=== PATIENT | female | born 1980 | race Caucasian/White ===

== ENCOUNTER 2019-10-26 09:19 | Outpatient (CLI) | payer OTHER, SELFPAY ==
[2019-10-26 11:49] LABS: Alanine Aminotransferase 52 U/L (14-59); Alkaline Phosphatase 67 U/L (46-116); Anion Gap 14.9 mmol/L (7-16); Aspartate Amino Transferase 24 U/L (15-37); Bilirubin,Total 0.9 mg/dL (0.00-1.00); Blood Urea Nitrogen 18 mg/dL (7-18); Calcium 8.8 mg/dL (8.5-10.1); Carbon Dioxide 25 mmol/L (21-32); Chloride 105 mmol/L (98-108); Cholesterol 215 mg/dL (0-200); Estimated Glomerular Filt Rate > 60; Glucose 108 mg/dL (70-99); HDL Direct 41 mg/dL (40-60); LDL Cholesterol Calculated 151 mg/dL (<130); Osmolality Calculated 292 mOsm/kg (285-295); Potassium 4.9 mmol/L (3.5-5.1); Sodium 140 mmol/L (136-145); Total Protein 7.8 g/dL (6.4-8.2); Triglycerides 113 mg/dL (0-150)
== END 2019-10-26 09:20 | disposition home or self-care (01) ==
PROVIDERS: PCP Family Medicine
DX: E78.5 Hyperlipidemia, unspecified (principal)
CPT/HCPCS: 36415; 80053; 80061

== ENCOUNTER 2020-05-23 06:34 | Outpatient (CLI) | payer OTHER, SELFPAY ==
--- NOTE | ~2020-05-23 | MM_ITS ---
EXAMINATION: MM screening leandro BI w thu HISTORY: Screening TECHNIQUE: Craniocaudal and mediolateral oblique 3-D tomosynthesis images were obtained and synthetic 2-D images were generated. CAD analysis was submitted and interpreted. COMPARISON: 05/17/2019 BREAST PARENCHYMAL COMPOSITION: There are scattered areas of fibroglandular density. FINDINGS: There is no evidence of suspicious mass, calcification, or architectural distortion to sugg est malignancy in either breast. There has been no suspicious interval change. IMPRESSION: 1. No mammographic evidence of malignancy. 2. Recommend routine screening mammography in one year. BI-RADS Category 1: Negative Reviewed, dictated and finalized at location A.
== END 2020-05-23 06:35 | disposition home or self-care (01) ==
PROVIDERS: PCP Family Medicine; Visit Provider Student in an Organized Health Care Education/Training Program
DX: Z12.31 Encounter for screening mammogram for malignant neoplasm of breast (principal)
CPT/HCPCS: 77063; 77067

== ENCOUNTER 2020-05-29 06:33 | Outpatient (CLI) | payer OTHER, SELFPAY ==
[2020-05-29 11:28] LABS: Cholesterol 197 mg/dL (0-200); Triglycerides 152 mg/dL (0-150)
[2020-05-29 11:29] LABS: HDL Direct 42 mg/dL (40-60); LDL Cholesterol Calculated 125 mg/dL (<130)
[2020-06-03 09:59] LABS: Vitamin D 25 Hydroxy 24 ng/mL (30-100)
== END 2020-05-29 06:34 | disposition home or self-care (01) ==
LOC: CHSLAB 06:38
PROVIDERS: PCP Nurse Practitioner; Visit Provider Nurse Practitioner
DX: R53.83 Other fatigue (principal); E78.2 Mixed hyperlipidemia
CPT/HCPCS: 36415; 80061; 82306

== ENCOUNTER 2020-10-08 08:26 | Outpatient (CLI) | payer OTHER, SELFPAY ==
[2020-10-11 18:55] LABS: HSV 1 IgM Screen Negative (Negative); HSV 2 IgM Screen Negative (Negative)
== END 2020-10-08 08:27 | disposition home or self-care (01) ==
PROVIDERS: PCP Family Medicine; Visit Provider Student in an Organized Health Care Education/Training Program
DX: Z20.2 Contact with and (suspected) exposure to infections with a predominantly sexual mode of transmission (principal)
CPT/HCPCS: 36415; 86695; 86696

== ENCOUNTER 2021-04-01 13:00 | Outpatient (CLI) | payer OTHER, SELFPAY ==
[2021-04-01 14:13] LABS: SARS-CoV-2 RNA PCR Negative (Negative)
== END 2021-04-01 13:01 | disposition home or self-care (01) ==
LOC: CHSLAB 13:03
PROVIDERS: PCP Family Medicine; Visit Provider Family Medicine
DX: Z20.822 Contact with and (suspected) exposure to COVID-19 (principal)
CPT/HCPCS: C9803; U0003; U0005

== ENCOUNTER 2021-04-09 20:52 | Inpatient (IN) | payer OTHER, SELFPAY ==
--- NOTE | ~2021-04-09 | US_ITS ---
EXAMINATION: US venous doppler [facility] EXAM DATE: 04/10/2021 12:26 INDICATION: edema and numbness LLE . TECHNIQUE: Multiple grayscale, color flow and Doppler images of the left lower extremity deep venous system were obtained and reviewed. There is no prior study for comparison. FINDINGS: The left common femoral, femoral and profunda veins demonstrate normal color flow, respirat ory variation, augmentation and compressibility. Compressibility, color flow confirmed within the le ft popliteal, posterior tibial, peroneal, and greater saphenous veins. IMPRESSION: 1. No left lower extremity deep venous thrombosis. Reviewed, dictated and finalized at location B.
--- NOTE | ~2021-04-09 | XR_ITS ---
EXAMINATION: XR chest 1V portable DATE: 04/09/2021 21:37 INDICATION: Shortness of breath and cough. COVID-19 pneumonia. TECHNIQUE: A single frontal view of the chest was obtained. COMPARISON: Chest 2 views 12/27/2018 FINDINGS: There are patchy airspace opacities in the mid and lower lung zones. No pleural effusion or pneumothorax. The heart size is normal. IMPRESSION: 1. Patchy airspace opacities in the mid and lower lung zones, consistent with COVID-19 pneumonia. Reviewed, dictated and finalized at location A. IMPRESSION: 1. Patchy airspace opacities in the mid and lower lung zones, consistent with C OVID-19 pneumonia.
[2021-04-09 21:17] VITALS: BP 133/96; PULSE 125; RESP 40; TEMP 38.1; O2SAT 100
[2021-04-09 21:21] VITALS: PULSE 133; RESP 32; O2SAT 97
[2021-04-09 21:23] VITALS: PULSE 120; RESP 32; O2SAT 100
[2021-04-09] MEDS: ALBUTEROL SULFATE (*SP) INHALER 2 PUFF INHALATION (21:24)
[2021-04-09 21:44] LABS: Base Excess ABG -6.1 mmol/L (0-2); Basophils Absolute Auto 0.01 K/mm3 (0.00-0.10); Basophils Percent Auto 0.2 % (0.0-1.0); Hematocrit 41.8 % (35.0-49.0); Hemoglobin 13.9 g/dL (12.0-15.0); Immature Granulocyte Absolute 0.03 K/mm3 (0.00-0.00); Immature Granulocyte Percent A 0.5 % (0.0-0.0); Lymphocytes Absolute Auto 0.94 K/mm3 (1.10-4.50); Lymphocytes Percent Auto 16.6 % (18.0-42.0); Mean Corpuscular HGB Conc 33.3 g/dL (32.0-36.0); Mean Corpuscular Hemoglobin 28.4 pg (27.0-31.0); Mean Corpuscular Volume 85.3 fL (78.0-102.0); Mean Platelet Volume 9.3 fl (9.2-11.8); Monocytes Absolute Auto 0.28 K/mm3 (0.10-0.90); Monocytes Percent Auto 4.9 % (2.0-11.0); Neutrophils Absolute Auto 4.4 K/mm3 (1.7-7.2); Neutrophils Percent Auto 77.8 % (50.0-70.0); Oxygen Content ABG 19.1 %vol (16.0-22.0); Oxygen Saturation ABG 93.7 % (95-97); PCO2 ABG 20.9 mmHg (35-45); PO2 ABG 68.1 mmHg (80-90); Platelet Count Result 177 K/mm3 (150-420); Red Cell Distribution Width 11.9 % (11.6-14.4); Total Hemoglobin 14.6 g/dL (12.0-18.0); White Blood Count 5.7 K/mm3 (4.8-10.8); pH ABG 7.48 (7.35-7.45)
[2021-04-09 21:45] LABS: Modified Allen's Test Pass; Site Drawn LEFT RADIAL
[2021-04-09 21:46] LABS: Device ROOM AIR
[2021-04-09 22:00] LABS: Alanine Aminotransferase 53 U/L (14-59); Albumin Level 3.4 g/dL (3.4-5.0); Alkaline Phosphatase 68 U/L (46-116); Anion Gap 13 mmol/L (8-16); Aspartate Amino Transferase 32 U/L (15-37); Bilirubin,Total 0.7 mg/dL (0.00-1.00); Blood Urea Nitrogen 15 mg/dL (7-18); Calcium 8.3 mg/dL (8.5-10.1); Carbon Dioxide 22 mmol/L (21-32); Chloride 101 mmol/L (98-108); Estimated CRCL calculation 88 ml/min; Estimated Glomerular Filt Rate 59; Glucose 304 mg/dL (70-99); Osmolality Calculated 293 mOsm/kg (285-295); Potassium 4.1 mmol/L (3.5-5.1); Sodium 136 mmol/L (136-145); Total Protein 7.7 g/dL (6.4-8.2)
--- NOTE | 2021-04-09 22:03 | ED.SOB ---
HPI - SOB/Dyspnea General Chief Complaint: Shortness of Breath/Dyspnea Stated Complaint: trouble breathing,COVID + Source: patient Mode of arrival: ambulatory Limitations: no limitations History of Present Illness HPI Narrative: this is a 41-year-old female with history of diabetes and depression COVID positive presents with increasing shortness of breath nonproductive cough with no fever chills O2 sats are stable with no nausea vomiting no abdominal pain no chest pain no diarrhea constipation. MD elicited complaint: shortness of breath and cough Onset (ago): day(s) Context: recent illness Timing: constant Severity: moderate Exacerbating factors: coughing and inspiration Relieving factors: bronchodilators Related Data Home Medications Medication Instructions Recorded Confirmed citalopram 20 mg tablet 20 mg PO DAILY 02/06/20 04/09/21 metformin 500 mg tablet 500 mg PO DAILY 09/10/20 04/09/21 Allergies Allergy/AdvReac Type Severity Reaction Status Date / Time No Known Allergies Allergy Verified 04/09/21 21:29 Review of Systems Review of Systems: All systems reviewed & are unremarkable except as noted in HPI and below PMFSH Past Medical History Medical History Ectopic x 3 Type II diabetes mellitus Surgical History Surgical History History of bilateral tubal ligation History of cholecystectomy History of endometrial ablation Previous section x 3 Family History Family History Father Hypertension Grandparent Hypertension Cerebrovascular accident Carcinoma of colon Family history of malignant neoplasm of ovary Other Diabetes mellitus Social History Social History Smoking status: Former smoker Alcohol intake: current Exam Const: General: no acute distress Orientation/consciousness: patient oriented x3 HENMT: Head: normal to inspection Eyes: Conjunctivae: conjunctivae normal Pupils: Equal, round and reactive pupils present EOM: EOMs intact bilaterally Direct Ophthalmoscopy: no photophobia Neck: Neck: normal visual inspection, no lymphadenopathy and no meningeal signs Chest: Chest palpation & inspection: normal inspection of the chest Resp: Effort & Inspection: normal respiratory effort Auscultation: clear to auscultation bilaterally Cardio: Rate: regular rate Rhythm: regular rhythm GI: GI Palp: Yes Soft to palpation Percussion: Yes normal to percussion : General: Yes no CVA tenderness Neuro: General: patient oriented x3 Extrem: General: normal to inspection and no pedal edema Psych: Mental Status: mental status grossly normal Affect: normal affect Course Course Emergency Course: Reassessment of patient breathing a little easier continues to have a cough reviewed ABGs and chest x-ray and will admit the patient. Vital Signs Vital signs: Vital Signs Temperature 38.1 C H 04/09/21 21:17 Pulse Rate 125 H 04/09/21 21:17 Respiratory Rate 40 H 04/09/21 21:17 Blood Pressure 133/96 H 04/09/21 21:17 Pulse Oximetry 100 04/09/21 21:17 Temperature 38.1 C H 04/09/21 21:17 Pulse Rate 120 H 04/09/21 21:23 Respiratory Rate 32 H 04/09/21 21:23 Blood Pressure 133/96 H 04/09/21 21:17 Pulse Oximetry 100 04/09/21 21:23 MDM - SOB/Dyspnea Lab Data Result diagrams: 04/09/21 21:11 04/09/21 21:11 Labs: Lab Results 04/09/21 04/09/21 Range/Units 21:11 21:11 WBC 5.7 (4.8-10.8) K/mm3 RBC 4.90 (4.20-5.40) M/mm3 Hgb 13.9 (12.0-15.0) g/dL Hct 41.8 (35.0-49.0) % MCV 85.3 (78.0-102.0) fL MCH 28.4 (27.0-31.0) pg MCHC 33.3 (32.0-36.0) g/dL RDW 11.9 (11.6-14.4) % Plt Count 177 (150-420) K/mm3 MPV 9.3 (9.2-11.8) fl Immature Gran % (Auto) 0.5
[2021-04-09 22:20] VITALS: O2SAT 98
[2021-04-09 22:25] VITALS: BP 119/73; PULSE 102; RESP 32; O2SAT 98
--- NOTE | 2021-04-09 22:40 | ADMGEN ---
This patient, Arlene Jiang, was admitted to 2nd Floor Room 212-1. Patient was oriented to hospital policies and general routines including ID bracelet, bed and alarms, visiting hours, pain management, procedures, bathroom and other care routines, personal items, smoking policy, and room service/diet. Information on how to activate the Rapid Response Team has been discussed. Patient is encouraged to report perceived risks to care and to ask questions if she does not understand what she is told or what she should do.
[2021-04-09 23:30] VITALS: O2SAT 99
[2021-04-09] MEDS: SODIUM CHLORIDE 0.9% IV 1,000 ML 100 ML IV CONT (23:40)
[2021-04-09] MEDS: DEXAMETHASONE SOD PHOS INJ 4 MG/ML VIAL 6 MG IV PUSH (23:40)
[2021-04-09] MEDS: REMDESIVIR 200 MG/NS 250 ML 200 MG/250 ML BAG 250 MG IVPB (23:50)
[2021-04-09] MEDS: ACETAMINOPHEN 325 MG TABLET 650 MG PO (23:51)
[2021-04-10] VITALS (11 sets, daily range): BP systolic 106–134; BP diastolic 53–68; PULSE 78–99; RESP 18–32; TEMP 36.2–37.3; O2SAT 93–99
--- NOTE | 2021-04-10 02:15 | PC.NURSE ---
Completed patient rounding. Patient is sleeping comfortably in bed, without any signs of pain or discomfort.
[2021-04-10 05:32] LABS: Hemoglobin 12.8 g/dL (12.0-15.0); Mean Corpuscular HGB Conc 32.8 g/dL (32.0-36.0); Mean Corpuscular Hemoglobin 28.3 pg (27.0-31.0); Mean Corpuscular Volume 86.1 fL (78.0-102.0); Mean Platelet Volume 9.1 fl (9.2-11.8); Platelet Count Result 161 K/mm3 (150-420); Red Blood Count 4.53 M/mm3 (4.20-5.40); Red Cell Distribution Width 11.9 % (11.6-14.4); White Blood Count 4.6 K/mm3 (4.8-10.8)
[2021-04-10 05:46] LABS: Alanine Aminotransferase 37 U/L (14-59); Albumin Level 2.9 g/dL (3.4-5.0); Alkaline Phosphatase 58 U/L (46-116); Anion Gap 11 mmol/L (8-16); Aspartate Amino Transferase 29 U/L (15-37); Bilirubin,Total 0.8 mg/dL (0.00-1.00); Blood Urea Nitrogen 15 mg/dL (7-18); Calcium 7.6 mg/dL (8.5-10.1); Carbon Dioxide 23 mmol/L (21-32); Chloride 101 mmol/L (98-108); Estimated CRCL calculation 103 ml/min; Estimated Glomerular Filt Rate > 60; Glucose 348 mg/dL (70-99); Osmolality Calculated 294 mOsm/kg (285-295); Potassium 4.3 mmol/L (3.5-5.1); Sodium 135 mmol/L (136-145); Total Protein 6.8 g/dL (6.4-8.2)
[2021-04-10 06:04] LABS: Band Neutrophils Percent 0 % (0-6); Basophils Percent Manual 0 % (0-1); Eosinophils Percent Manual 0 % (1-6); Lymphocytes Absolute Manual 0.69 K/mm3 (1.1-4.5); Lymphocytes Percent Manual 15 % (18-44); Monocytes Absolute Manual 0.41 K/mm3 (0.1-0.90); Monocytes Percent Manual 9 % (3-9); Neutrophils Absolute Manual 3.49 K/mm3 (1.7-7.2); Neutrophils Percent Manual 76 % (46-73); Platelet Estimate Adequate (Adequate)
[2021-04-10] MEDS: metFORMIN HCL 500 MG TABLET PO (08:30)
[2021-04-10] MEDS: ENOXAPARIN 40 MG/0.4 ML SYRINGE SUB-Q (08:30)
[2021-04-10] MEDS: DEXAMETHASONE SOD PHOS INJ 4 MG/ML VIAL 6 MG IV PUSH (08:30)
[2021-04-10 10:07] LABS: Base Excess ABG -3.8 mmol/L (0-2); HCO3 ABG 19.7 mmol/L (23-29); Oxygen Content ABG 16.7 %vol (16.0-22.0); Oxyhemoglobin 94.5 % (94-100); PCO2 ABG 31.2 mmHg (35-45); PO2 ABG 77.1 mmHg (80-90); Total Hemoglobin 12.5 g/dL (12.0-18.0); pH ABG 7.42 (7.35-7.45)
[2021-04-10 10:10] LABS: Device NASAL CANNULA; Modified Allen's Test Pass; Site Drawn LEFT RADIAL
--- NOTE | 2021-04-10 11:27 | PM.IMHP ---
H&P: HPI History of Present Illness Date/Time: 04/10/21 11:27 Arlene Jiang is a 41 year old female who comes to the hospital with SOB and cough after testing positive for COVID on 04/04/21. Pt states she believes she got COVID from her kids who were exposed at school. Pt states she was breathing heavily. Denies fever and chills. She had a temp of 100.5`F in the ER. This morning Pt states her breathing is improved a bit. She is concerned that her left foot feels swollen with numbness. Pt was hypoxic in the ER upon arrival with an ABG showing: pH 7.48, pCO2 20.9, pO2 68.1, HCO3 15 this morning ABG improved: pH 7.42, pCO2 31.2, pO2 77.1, HCO3 19.7. Pt required supplemental O2 at 2L/min via NC. PMHx includes: Depression and T2DM Chief Complaint: Shortness of Breath Review of Systems Constitutional: Constitutional: Reports no additional constitutional complaints, Denies body ache(s), Denies chills, Denies fever(s) and Denies headache(s) Cardiovascular: Cardiovascular: Reports no additional cardiovascular complaints, Denies chest pain and Denies chest pain at rest Respiratory: Respiratory: Reports no additional respiratory complaints, Reports dyspnea and Reports dyspnea on exertion Comments: admits she was hyperventilating upon arrival to the ER. This is resolved this AM. Gastrointestinal: Gastrointestinal: Reports no additional gastrointestinal complaints and Denies abdominal pain Musculoskeletal: Musculoskeletal: Reports no additional musculoskeletal complaints Neurologic: Reports system reviewed and no additional complaints, except as documented Psychiatric: Psychiatric: Reports no additional psychiatric complaints PMFSH Past Medical History Medical History (Updated 04/10/21 @ 12:09 by Dario Jackson APN-Maximo) Abnormal uterine bleeding Body mass index [BMI] 45.0-49.9, adult (04/26/19) Depression Ectopic x 3 Encounter for gynecological examination (general) (routine) without abnormal findings Personal history of nicotine dependence Postoperative visit Preoperative exam for gynecologic surgery Screening mammogram, encounter for STD exposure Type II diabetes mellitus UTI symptoms Surgical History Surgical History History of bilateral tubal ligation History of cholecystectomy History of endometrial ablation Previous section x 3 Family History Family History Father Hypertension Grandparent Hypertension Cerebrovascular accident Carcinoma of colon Family history of malignant neoplasm of ovary Other Diabetes mellitus Social History Social History Smoking status: Never smoker Alcohol intake: never Substance use: never Substance use type: does not use Spiritual care concerns: No Meds Home Medications and Allergies Home Medications Medication Instructions Recorded Confirmed Type citalopram 20 mg tablet 20 mg PO DAILY 02/06/20 04/09/21 History metformin 500 mg tablet 500 mg PO DAILY 09/10/20 04/09/21 History Allergies Allergy/AdvReac Type Severity Reaction Status Date / Time No Known Allergies Allergy Verified 04/09/21 21:29 Vital Signs Vital Signs - 24 hr 04/09/21 21:17 04/09/21 21:21 04/09/21 21:23 Temperature 100.5 F H Pulse Rate 125 H 133 H 120 H Respiratory Rate 40 H 32 H 32 H Blood Pressure 133/96 H Pulse Oximetry 100 97 100 04/09/21 22:20 04/09/21 22:25 04/09/21 23:30 Temperature Pulse Rate 102 H Respiratory Rate 32 H Blood Pressure 119/73 Pulse Oximetry 98 98 99 04/10/21 00:00 04/10/21 04:00 04/10/21 07:55 Temperature 99.2 F 97.6 F 97.2 F L Pulse Rate 99 86 82 Respiratory Rate 32 H 32 H 20 Blood Pressure 106/60 124/67 116/53 L Pulse Oximetry 99 95 98 04/10/21 08:00 Temperature Pulse Rate 80 Respiratory Rate 20 Blood Pressure Pulse Oximetry 98 E
[2021-04-10] MEDS: guaiFENesin/DEXTROMETHORPHAN 5 ML UDC 10 ML PO ×2 (12:15→18:00)
[2021-04-10 12:27] LABS: Glucose Point of Care 295 mg/dl (65-105)
[2021-04-10 17:24] LABS: Glucose Point of Care 323 mg/dl (65-105)
[2021-04-10] MEDS: ACETAMINOPHEN 325 MG TABLET 650 MG PO (17:56)
[2021-04-10] MEDS: REMDESIVIR 100 MG/NS 250 ML 100 MG/250 ML BAG 250 MG IVPB (21:18)
[2021-04-10 21:34] LABS: Glucose Point of Care 311 mg/dl (65-105)
[2021-04-11] VITALS (7 sets, daily range): BP systolic 112–139; BP diastolic 64–79; PULSE 61–98; RESP 15–20; TEMP 36.1–37.1; O2SAT 94–98
[2021-04-11] MEDS: guaiFENesin/DEXTROMETHORPHAN 5 ML UDC 10 ML PO ×4 (00:01→23:20)
[2021-04-11 05:26] LABS: Hematocrit 35.7 % (35.0-49.0); Mean Corpuscular HGB Conc 33.6 g/dL (32.0-36.0); Mean Corpuscular Hemoglobin 28.7 pg (27.0-31.0); Mean Corpuscular Volume 85.4 fL (78.0-102.0); Mean Platelet Volume 9.2 fl (9.2-11.8); Platelet Count Result 172 K/mm3 (150-420); Red Blood Count 4.18 M/mm3 (4.20-5.40); White Blood Count 4.7 K/mm3 (4.8-10.8)
[2021-04-11 05:41] LABS: Alanine Aminotransferase 35 U/L (14-59); Albumin Level 2.8 g/dL (3.4-5.0); Alkaline Phosphatase 54 U/L (46-116); Anion Gap 9 mmol/L (8-16); Aspartate Amino Transferase 23 U/L (15-37); Bilirubin,Total 0.5 mg/dL (0.00-1.00); Blood Urea Nitrogen 13 mg/dL (7-18); Carbon Dioxide 26 mmol/L (21-32); Chloride 105 mmol/L (98-108); Estimated CRCL calculation 110 ml/min; Estimated Glomerular Filt Rate > 60; Glucose 262 mg/dL (70-99); INR 1.1; Osmolality Calculated 299 mOsm/kg (285-295); Potassium 3.8 mmol/L (3.5-5.1); Prothrombin Time 11.2 Seconds (9.50-12.10); Sodium 140 mmol/L (136-145); Total Protein 6.7 g/dL (6.4-8.2)
--- NOTE | 2021-04-11 08:27 | PM.IMPN ---
Progress Note: A&P Assessment and Plan (1) Pneumonia due to 2019 novel coronavirus: Code(s): U07.1 - COVID-19; J12.82 - Pneumonia due to coronavirus disease 2019 Status: Acute Assessment and Plan: Positive for COVID on 04/04/21, increased oxygen demand requiring supplemental O2 via NC at 2L/min for an SpO2 >94%, Remdesivir, Decadron, Lovenox, will monitor ALT 37, Cr 0.86, eGFR >60, and PT/INR 11/1. ABG improved, Robitussin, Albuterol 04/11/2021 supplemental O2 down to 1L/min with SpO2 95% or better, Pt states breathing is better this AM, Cr 0.8, eGFR >60, ALT 35, PT/INR 11.2/1.1 (2) Type II diabetes mellitus: Code(s): E11.9 - Type 2 diabetes mellitus without complications Status: Acute Assessment and Plan: Continue Metformin and added SSI with hypoglycemia protocol in place. 04/11/2021 Glucose elevated due to Decadron, continue to monitor and use SSI (3) Depression: Code(s): F32.9 - Major depressive disorder, single episode, unspecified Status: Acute Assessment and Plan: Continue Citalopram (4) Swelling of right foot: Code(s): M79.89 - Other specified soft tissue disorders Status: Acute Assessment and Plan: Ordered LE Venous US. 04/11/2021 Negative for DVT Subjective Date/time seen: 04/11/21 08:27 Arlene Jiang states her breathing has improved this AM. Yesterday evening she did not use her supplemental oxygen and it was reported that she did well without it. Currently she is at 1L/min with SpO2 of 96%. Pt would like to know when she can return home. I informer her she had 2 more days of Remdesivir however if she can be weaned off of supplemental O2 she could go home earlier. Pt has no other concerns other than to continue her Citalopram and she wanted water. Review of Systems Constitutional: Constitutional: Reports no additional constitutional complaints, Denies body ache(s), Denies chills and Denies fever(s) Cardiovascular: Cardiovascular: Reports no additional cardiovascular complaints, Denies chest pain and Denies chest pain at rest Respiratory: Respiratory: Reports no additional respiratory complaints and Reports cough (with deep inspiration) Gastrointestinal: Gastrointestinal: Reports no additional gastrointestinal complaints and Denies abdominal pain Musculoskeletal: Musculoskeletal: Reports no additional musculoskeletal complaints Neurologic: Reports system reviewed and no additional complaints, except as documented Psychiatric: Psychiatric: Reports no additional psychiatric complaints Exam Const: General: cooperative, healthy appearing, comfortable, well developed, alert, awake and Physically active Resp: Effort & Inspection: normal respiratory effort Auscultation: clear to auscultation bilaterally Cardio: Jugular venous distension: no JVD Rate: regular rate Heart sounds: S1 normal heart sound present and S2 normal heart sound present Skin: General skin exam: normal color and dry skin Neuro: General: oriented to person, oriented to place, oriented to time and CN's II-XI intact bilaterally (grossly intact) Cognition (Neuro): normal cognition Speech: normal speech Gait exam (Neuro): Normal gait present Extrem: General: full ROM and no pedal edema Psych: Appearance: grossly normal Mental Status: mental status grossly normal Speech and movement: Normal speech and movement present Affect: normal affect Attitude: cooperative Thought process: Normal thought process present Objective Data Vital Signs Vital Signs: Vital Signs - 24 hr 04/10/21 08:40 04/10/21 11:45 04/10/21 12:00 Temperature 97.2 F L Pulse Rate 78 79 84 Respiratory Rate 18 18 Blood Pressure 121/63 Pulse Oximetry 93 97 04/10/21 16:00 04/10/21 16:45 04/10/21 20:00 Temperature 97.3 F L 97.8 F Pulse Rate 87 87 81 Respiratory Rate 18 18 Blood Pressure 134/65 130/68 Pulse Oximetry 97 97 04/10/21 22:49 04/11/21 00:00 04/11/21 04:00 Temperature 98.8 F 9
[2021-04-11] MEDS: ENOXAPARIN 40 MG/0.4 ML SYRINGE SUB-Q (09:02)
[2021-04-11] MEDS: DEXAMETHASONE SOD PHOS INJ 4 MG/ML VIAL 6 MG IV PUSH (09:02)
[2021-04-11] MEDS: metFORMIN HCL 500 MG TABLET PO (09:02)
[2021-04-11] MEDS: ACETAMINOPHEN 325 MG TABLET 650 MG PO ×2 (09:17→17:02)
[2021-04-11] MEDS: ONDANSETRON INJ 4 MG/2 ML VIAL IV PUSH ×2 (09:31→17:02)
[2021-04-11] MEDS: CITALOPRAM HYDROBROMIDE 20 MG TABLET PO (09:35)
[2021-04-11 12:16] LABS: Glucose Point of Care 260 mg/dl (65-105)
[2021-04-11 16:39] LABS: Glucose Point of Care 278 mg/dl (65-105)
[2021-04-11] MEDS: REMDESIVIR 100 MG/NS 250 ML 100 MG/250 ML BAG 250 MG IVPB (21:48)
[2021-04-12 04:00] VITALS: BP 132/72; PULSE 62; PULSE 87; RESP 18; TEMP 36.1; O2SAT 94
[2021-04-12] MEDS: ACETAMINOPHEN 325 MG TABLET 650 MG PO (04:38)
[2021-04-12 05:26] LABS: Hematocrit 36.7 % (35.0-49.0); Hemoglobin 12.4 g/dL (12.0-15.0); Mean Corpuscular HGB Conc 33.8 g/dL (32.0-36.0); Mean Corpuscular Hemoglobin 28.7 pg (27.0-31.0); Mean Platelet Volume 9.3 fl (9.2-11.8); Platelet Count Result 177 K/mm3 (150-420); Red Blood Count 4.32 M/mm3 (4.20-5.40); Red Cell Distribution Width 11.9 % (11.6-14.4); White Blood Count 3.5 K/mm3 (4.8-10.8)
[2021-04-12 05:50] LABS: INR 1.1; Prothrombin Time 11.2 Seconds (9.50-12.10)
[2021-04-12 05:54] LABS: Alanine Aminotransferase 31 U/L (14-59); Albumin Level 2.8 g/dL (3.4-5.0); Alkaline Phosphatase 55 U/L (46-116); Anion Gap 10 mmol/L (8-16); Aspartate Amino Transferase 21 U/L (15-37); Bilirubin,Total 0.5 mg/dL (0.00-1.00); Blood Urea Nitrogen 14 mg/dL (7-18); Calcium 8.2 mg/dL (8.5-10.1); Carbon Dioxide 26 mmol/L (21-32); Chloride 105 mmol/L (98-108); Estimated CRCL calculation 125 ml/min; Estimated Glomerular Filt Rate > 60; Glucose 241 mg/dL (70-99); Osmolality Calculated 300 mOsm/kg (285-295); Potassium 3.8 mmol/L (3.5-5.1); Sodium 141 mmol/L (136-145); Total Protein 6.8 g/dL (6.4-8.2)
[2021-04-12 08:00] VITALS: BP 119/72; PULSE 76; RESP 20; TEMP 35.9; O2SAT 93
[2021-04-12] MEDS: guaiFENesin/DEXTROMETHORPHAN 5 ML UDC 10 ML PO (08:21)
[2021-04-12] MEDS: ONDANSETRON INJ 4 MG/2 ML VIAL IV PUSH (08:21)
[2021-04-12] MEDS: metFORMIN HCL 500 MG TABLET PO (08:21)
[2021-04-12] MEDS: DEXAMETHASONE SOD PHOS INJ 4 MG/ML VIAL 6 MG IV PUSH (08:21)
[2021-04-12] MEDS: CITALOPRAM HYDROBROMIDE 20 MG TABLET PO (08:21)
[2021-04-12] MEDS: ENOXAPARIN 40 MG/0.4 ML SYRINGE SUB-Q (08:22)
[2021-04-12 09:40] VITALS: PULSE 88; O2SAT 95
[2021-04-12 09:46] VITALS: PULSE 96; O2SAT 91
[2021-04-12 10:00] VITALS: PULSE 84; O2SAT 95
--- NOTE | 2021-04-12 10:03 | PM.DS ---
DS: Admitting Diagnosis Admitting Diagnosis Covid pneumonia DS: Discharge Diagnosis Discharge Diagnosis (1) Pneumonia due to 2019 novel coronavirus: Code(s): U07.1 - COVID-19; J12.82 - Pneumonia due to coronavirus disease 2019 Status: Acute Assessment and Plan: Positive for COVID on 04/04/21, increased oxygen demand requiring supplemental O2 via NC at 2L/min for an SpO2 >94%, Remdesivir, Decadron, Lovenox, will monitor ALT 37, Cr 0.86, eGFR >60, and PT/INR 11/1. ABG improved, Robitussin, Albuterol 04/11/2021 supplemental O2 down to 1L/min with SpO2 95% or better, Pt states breathing is better this AM, Cr 0.8, eGFR >60, ALT 35, PT/INR 11.2/1.1 Home O2 evaluation complete no oxygen required Discharge home with dexamethasone and inhalers (2) Type II diabetes mellitus: Code(s): E11.9 - Type 2 diabetes mellitus without complications Status: Acute Assessment and Plan: Continue Metformin and added SSI with hypoglycemia protocol in place. 04/11/2021 Glucose elevated due to Decadron, continue to monitor and use SSI Blood sugars elevated due to steroid use Added glipizide with her Metformin to better control her blood sugar while taking prednisone will discontinue glipizide once prednisone is complete (3) Depression: Code(s): F32.9 - Major depressive disorder, single episode, unspecified Status: Acute Assessment and Plan: Continue Citalopram (4) Swelling of right foot: Code(s): M79.89 - Other specified soft tissue disorders Status: Acute Assessment and Plan: Ordered LE Venous US. 04/11/2021 Negative for DVT DS: Summary Hospital Course Hospital Course: Arlene Jiang is a 41 year old female with a past medical history of diabetes depression and nicotine dependence who came to the hospital with SOB and cough after testing positive for COVID on 04/04/21. Pt states she believes she got COVID from her kids who were exposed at school. Patient was treated with dexamethasone and remdesivir along with inhalers. Her condition has improved and she will discharge home with dexamethasone, and inhalers. Home to evaluation has been completed on her she does not require any oxygen. Chief Complaint: Shortness of Breath Time Spent with Patient Time attestation: Total time spent providing and/or coordinating discharge services:60 Exam Narrative: GENERAL: This is a well-nourished, well-developed patient, in no apparent distress. HEAD: normocephalic, atraumatic. EYES: PERRL. Sclera clear/white. Vision is grossly intact. EARS: External ears normal, auditory canals clear and without drainage, TMs normal without perforation. Hearing grossly intact. NOSE: External nose normal with no obvious nasal discharge, nares without redness, no rhinorrhea. THROAT: Mucous membranes moist, posterior pharynx clear. NECK: Neck supple, non-tender without lymphadenopathy, masses or thyromegaly. CARDIOVASCULAR: Regular rate and rhythm without murmurs, gallops, or rubs. RESPIRATORY: Clear to auscultation. Breath sounds equal bilaterally. No wheezes, rales, or rhonchi. GASTROINTESTINAL: Abdomen soft, non-tender, nondistended. Bowel sounds are active. No hepato-splenomegaly, or palpable masses. No guarding. SKIN: warm, intact with no suspicious lesions or rash, good texture and turgor. NEURO: awake, alert, and oriented to person, place and time. There were no obvious focal neurologic abnormalities. Steady gait EXTREMITIES: Normal range of motion. No edema. No calf tenderness. Negative Homans sign bilaterally. BACK: Nontender without deformity or crepitance. No flank tenderness. DS: Data Data Completed and Pending Labs on day of discharge: Labs from last 24 hours 04/12/21 04/12/21 04/12/21 05:19 05:19 05:19 WBC 3.5 L RBC 4.32 Hgb 12.4 Hct 36.7 MCV 85.0 MCH 28.7 MCHC 33.8 RDW 11.9 Plt Count 177 MPV 9.3 PT 11.2 INR 1.1 Sodium 141 Potassium 3.8 Chloride 10
--- NOTE | 2021-04-12 10:07 | HOMEO2EVAL ---
Evaluation was performed at [facility] [place] Home Oxygen Evaluation RC: Home Oxygen (O2) Evaluation Start: 04/12/21 09:58 Freq: Status: Active Protocol: RPE Activity Type Activity Date Activity User E-Sign Co-Sign Detail Recorded Client Recorded Date Recorded By Document 04/12/21 09:40 RICHARD [id number] 04/12/21 10:06 RICHARD Document 04/12/21 09:46 RICHARD [id number] 04/12/21 10:06 RICHARD Document 04/12/21 10:00 RICHARD [id number] 04/12/21 10:06 RICHARD 04/12/21 04/12/21 04/12/21 09:40 09:46 10:00 Home O2 Evaluation Test Phase Resting Exercise Resting Oxygen Delivery Room Air Room Air Room Air Pulse Oximetry (90-100 %) 95 91 95 Pulse Rate (60-100 beats/min) 88 96 84 Activity Tolerance Good Good Good Rating of Perceived Dyspnea (PD) +1 Mild, +2 Mild, Some +1 Mild, Noticeable to Difficulty, Noticeable to the Participant Noticeable to the Participant but Not to an the Observer but Not to an Observer Observer Rate of Perceived Exertion (PE) 9 Very light 11 Fairly light 11 Fairly light Ambulation Distance (feet) 250 Home Oxygen Evaluation Comments start walk Pt. walked recovered after within confines walking 250 of room 212 feet within 1 while on room minute Sp02 95% air. Encouraged and HR 84 bpm. [address]B. Steady gait. Treatment Charges O2 Evaluation - Inpatient
--- NOTE | 2021-04-12 11:40 | PC.NURSE ---
Discharge instructions reviewed with patient, explained continued need for self isolation/quarantine through 04/14. Patient verbalizes understanding. Reviewed new medications to be continued upon discharge. Patient ambulated to wheelchair and taken from floor to private vehicle.
--- NOTE | 2021-04-16 14:15 | PC.NURSE ---
Unable to contact for discharge call back.
[2021-04-28 14:14] LABS: Glucose Point of Care 239 mg/dl (65-105)
== END 2021-04-12 11:40 | disposition home or self-care (01) | DRG 177 ==
LOC: CHSED 20:57 → CHS2ND 22:19
PROVIDERS: Nurse Practitioner Family; Admitting Provider Emergency Medicine; Emergency Provider Emergency Medicine; PCP Family Medicine; Visit Provider Emergency Medicine
DX: U07.1 COVID-19 (principal); J12.82 Pneumonia due to coronavirus disease 2019; E11.9 Type 2 diabetes mellitus without complications; F32.9 Major depressive disorder, single episode, unspecified; Z90.49 Acquired absence of other specified parts of digestive tract; Z87.891 Personal history of nicotine dependence; M79.89 Other specified soft tissue disorders
CPT/HCPCS: 36415; 36600; 71045; 80053; 82805; 82948; 85025; 85027; 85610; 93971; 94618; 94640; 99285; A9270; J1100; J1650; J1815; J2405; J7030

== ENCOUNTER 2021-07-06 08:46 | Outpatient (CLI) | payer OTHER, SELFPAY ==
--- NOTE | ~2021-07-06 | MM_ITS ---
EXAMINATION: MM screening leandro BI w thu HISTORY: Screening mammogram TECHNIQUE: Craniocaudal and mediolateral oblique 3-D tomosynthesis images were obtained and synthetic 2-D images were generated. CAD analysis was submitted and interpreted. COMPARISON: 05/23/2020, 05/17/2019 bilateral screening mammogram examinations BREAST PARENCHYMAL COMPOSITION: The breasts are almost entirely fatty. FINDINGS: There is no evidence of suspicious mass, calcification, or architectural distortion to sugg est malignancy in either breast. There has been no suspicious interval change. IMPRESSION: 1. No mammographic evidence of malignancy. 2. Recommend routine screening mammography in one year. BI-RADS Category 1: Negative Reviewed, dictated and finalized at location A. KDOWN MAN
== END 2021-07-06 08:47 | disposition home or self-care (01) ==
PROVIDERS: PCP Family Medicine; Visit Provider Student in an Organized Health Care Education/Training Program
DX: Z12.31 Encounter for screening mammogram for malignant neoplasm of breast (principal)
CPT/HCPCS: 77063; 77067